=== PATIENT | female | born 1950 | race African-American/Black ===

== ENCOUNTER 2016-12-15 12:26 | Outpatient (CLI) | payer OTHER ==
--- NOTE | 2016-12-15 13:43 | RAD ---
PA AND LATERAL VIEWS CHEST: HISTORY: Malignant neoplasm of middle lobe, post pneumonectomy followup. FINDINGS: Comparison is made with the exam of 01/24/16. Changes of right-sided pneumonectomy are again seen with opacification of the right hemithorax and m ediastinal shift to the right. The heart size is stable. The left lung is hyperexpanded and clear. IMPRESSION: Stable exam. No acute process. POS: ZOHRA
== END 2016-12-15 12:27 | disposition home or self-care (01) ==
LOC: RAD 12:26
PROVIDERS: ATTEND Thoracic Surgery (Cardiothoracic Vascular Surgery)
DX: C34.2 Malignant neoplasm of middle lobe, bronchus or lung (principal)
CPT/HCPCS: 71020

== ENCOUNTER 2018-01-12 12:55 | Outpatient (CLI) | payer MEDICARE, MEDICAID ==
--- NOTE | 2018-01-12 14:53 | RAD ---
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 FINDINGS: Comparison made with exam of 12/15/16. Changes of right-sided pneumonectomy are again seen with opacification of the right hemithorax and me diastinal shift to the right. The heart size is stable. The left lung is hyperexpanded and clear. The re are postop changes of cholecystectomy. IMPRESSION: Stable exam. No acute process. POS: ERIN
== END 2018-01-12 12:56 | disposition home or self-care (01) ==
LOC: RAD 12:55
PROVIDERS: ATTEND Thoracic Surgery (Cardiothoracic Vascular Surgery)
DX: C34.2 Malignant neoplasm of middle lobe, bronchus or lung (principal)
CPT/HCPCS: 71046

== ENCOUNTER 2018-04-07 10:28 | Outpatient (CLI) | payer MEDICARE, MEDICAID | END 2018-04-07 10:29 | disposition home or self-care (01) | LOC: BICMAMMO 10:28 | PROVIDERS: ATTEND Nurse Practitioner Family | DX: Z12.31 Encounter for screening mammogram for malignant neoplasm of breast (principal); Z00.00 Encounter for general adult medical examination without abnormal findings; Z80.3 Family history of malignant neoplasm of breast; Z85.118 Personal history of other malignant neoplasm of bronchus and lung | CPT/HCPCS: 77063; 77067 ==

== ENCOUNTER 2019-02-16 14:37 | Outpatient (CLI) | payer MEDICARE ==
--- NOTE | 2019-02-16 15:08 | RAD ---
PA AND LATERAL CHEST: HISTORY: Malignant neoplasm of middle lobe bronchus. COMPARISON: 01/12/2018 FINDINGS: Changes of right sided pneumonectomy are again seen with opacification of the right hemithorax and me diastinal shift to the right. The heart size is stable. The aorta is tortuous. The left lung is hyper expanded and clear. Postop changes of cholecystectomy are again seen. The bones are osteopenic. IMPRESSION: Stable examination. No acute process. POS: TPC
== END 2019-02-16 14:38 | disposition home or self-care (01) ==
LOC: RAD 14:37
PROVIDERS: ATTEND Thoracic Surgery (Cardiothoracic Vascular Surgery)
DX: C34.2 Malignant neoplasm of middle lobe, bronchus or lung (principal)
CPT/HCPCS: 71046

== ENCOUNTER 2020-03-21 13:22 | Outpatient (CLI) | payer MEDICARE ==
--- NOTE | 2020-03-21 13:41 | RAD ---
XR Chest Pa Lat STANDARD HISTORY: Malignant neoplasm middle lobe, bronchus or lung COMPARISON: 02/16/2019 FINDINGS: Changes of right sided pneumonectomy are again seen with opacification of the right hemithorax and me diastinal shift to the right. The heart size is stable. The aorta is tortuous. The left lung is hyperexpanded and clear. Postop changes of cholecystectomy are again seen. The bones are osteopenic. IMPRESSION: Stable examination. No acute process.
== END 2020-03-21 13:23 | disposition home or self-care (01) ==
LOC: RAD 13:22
PROVIDERS: ATTEND Thoracic Surgery (Cardiothoracic Vascular Surgery)
DX: C34.2 Malignant neoplasm of middle lobe, bronchus or lung (principal)
CPT/HCPCS: 71046

== ENCOUNTER 2023-03-27 13:10 | Outpatient (CLI) | payer MEDICAID, MEDICARE | END 2023-03-27 13:11 | disposition home or self-care (01) | LOC: BICRAD 13:10 | PROVIDERS: ATTEND Internal Medicine | DX: R05.3 Chronic cough (principal); R07.81 Pleurodynia | CPT/HCPCS: 71046 ==

== ENCOUNTER 2023-08-06 14:04 | Outpatient (CLI) | payer MEDICARE, MEDICAID ==
[2023-08-06 15:28] LABS: Hematocrit 39.9 % (34.9-44.5); Hemoglobin 13.5 g/dL (12.0-15.5); Mean Corpuscular HGB CONC 33.8 g/dL (32.0-36.0); Mean Corpuscular Hemoglobin 27.6 pg (27.0-33.0); Mean Corpuscular Volume 81.4 fl (81.6-98.3); Mean Platelet Volume 11.8 fl (7.4-10.4); Platelet Count 141 10x3/uL (150-450); RBC Distribution Width 13.3 % (11.5-14.5); White Blood Cell (WBC) Count 6.5 10x3/uL (3.5-10.5)
[2023-08-06 16:11] LABS: Anion Gap 16 mmol/L (10-20); BUN (Urea Nitrogen) 13 mg/dL (9.8-20.1); Calc. Creatinine Clearance 0 mL/min (70-130); Calcium 9.6 mg/dL (7.8-10.44); Carbon Dioxide 20 mmol/L (23-31); Chloride 112 mmol/L (98-107); Estimated GFR 67; Glucose 125 mg/dL (80-115); Potassium 4.5 mmol/L (3.5-5.1); Sodium 143 mmol/L (136-145)
== END 2023-08-06 14:05 | disposition home or self-care (01) ==
LOC: LABBT 14:04
PROVIDERS: ATTEND Thoracic Surgery (Cardiothoracic Vascular Surgery)
DX: Z01.818 Encounter for other preprocedural examination (principal); I73.9 Peripheral vascular disease, unspecified
CPT/HCPCS: 80048; 85027; 93005; 93010

== ENCOUNTER 2023-09-12 12:30 | Outpatient (CLI) | payer MEDICARE, MEDICAID | END 2023-09-12 12:31 | disposition home or self-care (01) | LOC: SCSRAD 12:30 | PROVIDERS: ATTEND Family Medicine | DX: S69.92XA Unspecified injury of left wrist, hand and finger(s), initial encounter (principal); S52.572A Other intraarticular fracture of lower end of left radius, initial encounter for closed fracture ==

== ENCOUNTER 2024-02-26 09:52 | Outpatient (CLI) | payer MEDICARE | END 2024-02-26 09:53 | disposition home or self-care (01) | LOC: SCSRAD 09:52 | PROVIDERS: ATTEND Family Medicine | DX: I73.9 Peripheral vascular disease, unspecified (principal); R07.89 Other chest pain; R91.8 Other nonspecific abnormal finding of lung field | CPT/HCPCS: 71046 ==